=== PATIENT | male | born 1970 | race Caucasian/White ===

== ENCOUNTER 2018-08-16 11:38 | Emergency (ER) | payer SELFPAY ==
[2018-08-16 11:56] VITALS: BP 119/79; PULSE 82; RESP 20; TEMP 36.8; O2SAT 98
[2018-08-16 12:00] VITALS: RESP 18
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
[2018-08-16] MEDS: Acetaminophen 500 MG TAB 1000 MG PO (12:51)
[2018-08-16] MEDS: Ketorolac 30 MG/ML VIAL IM (12:51)
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
--- NOTE | 2018-08-23 10:55 | CMPROGNOTE_ITS ---
Care Management Progress Note 08/23-Jr needs to establish PCP. He does not need an ED f/u appt per Dr. Solitario. Referral faxed to [facility] (Carlos A director of application development). [facility] faxed back that they have mailed new patient packet if Jr would like to establish care.
== END 2018-08-16 13:46 | disposition home or self-care (01) ==
PROVIDERS: Emergency Provider Student in an Organized Health Care Education/Training Program
DX: S80.01XA Contusion of right knee, initial encounter (principal); R51 Headache; M25.561 Pain in right knee; V49.9XXA Car occupant (driver) (passenger) injured in unspecified traffic accident, initial encounter
CPT/HCPCS: 73562; 96372; 99284; J1885; L1810

== ENCOUNTER 2018-12-08 09:27 | Outpatient (CLI) | payer OTHER, SELFPAY ==
--- NOTE | 2018-12-08 09:23 | DI.RAD_ITS ---
SYMPTOMS/DIAGNOSIS: PAIN LEFT KNEE: No bony or joint abnormality is demonstrated.
== END 2018-12-08 09:47 ==
PROVIDERS: Visit Provider Orthopaedic Surgery
DX: M25.561 Pain in right knee (principal)
CPT/HCPCS: 73562

== ENCOUNTER 2019-01-18 12:52 | Outpatient (CLI) | payer OTHER, SELFPAY ==
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
== END 2019-01-18 13:12 ==
PROVIDERS: Visit Provider Orthopaedic Surgery
DX: M23.92 Unspecified internal derangement of left knee (principal); Z01.818 Encounter for other preprocedural examination
CPT/HCPCS: NC

== ENCOUNTER 2019-01-19 11:16 | Day surgery (SDC) | payer OTHER, SELFPAY ==
[2019-01-19 11:57] VITALS: BP 122/75; PULSE 53; RESP 16; TEMP 36.9; O2SAT 99
[2019-01-19] MEDS: Lactated Ringers 1,000 ML 80 ML IV (12:30)
[2019-01-19] MEDS: ceFAZolin 2 GM/50 ML BAG IVPB (12:52)
--- NOTE | 2019-01-19 13:51 | W.PM.DSUDISC ---
Discharge Plan Disposition Patient Disposition: HOME Condition: Good Discharge Details Reason For Visit: Arthroscopy L knee Attending Provider: Mauricio Johnson Primary Care Provider: ,Local Home Meds and New Rx's Prescriptions: New ibuprofen 800 mg tablet 800 mg PO TID Qty: 30 RF: 0 hydrocodone-acetaminophen 5-325 mg tablet 1 tab PO Q6H PRN (Reason: pain, moderate) Qty: 14 RF: 0 Discharge Instructions Additional Instructions: Crutches to walk. Put as much weight on L leg as your discomfort allows. Discontinue crutches when you can step fully on L leg with minimal pain. Elevate L leg when sitting. Apply cryocuff to L knee 4-6 times/day for 1 hour each time. May remove dressings, shower, and get incisions wet after 48 hours. Leave incisions uncovered when they are dry and sealed. Take ibuprofen 3 times/day for 10 days to decrease swelling and inflammation. Take hydrocodone for breakthru pain, if needed. Outpatient physical therapy on Fri or Mon for rehab L knee post-arthroscopic limited synovectomy and chondroplasty patello-femoral joint. Follow up with in 2 weeks. Referrals: Mauricio Johnson MD [ [facility] STAFF PHYSICIAN] - (f/u in 2 weeks.) Equipment/Supplies: Partial Weight Bearing Crutches Activity:: Activity as Tolerated Remove Dressings/Wound Care:: 48 hours Shower/Bathe:: 48 hours Diet:: As Tolerated Discharge Orders Discharge Orders: Discharge Order (Routine); Ordered 01/19/19 Ordered By: Mauricio Johnson
[2019-01-19 13:56] VITALS: BP 112/58; PULSE 56; RESP 12; TEMP 36.6; O2SAT 95
[2019-01-19 14:00] VITALS: BP 113/53; PULSE 55; RESP 12; TEMP 36.6; O2SAT 96
[2019-01-19 14:05] VITALS: BP 116/71; PULSE 55; RESP 13; TEMP 36.6; O2SAT 95
[2019-01-19 14:20] VITALS: BP 105/74; PULSE 57; RESP 16; TEMP 36.4; O2SAT 98
[2019-01-19 15:10] VITALS: BP 108/74; PULSE 52; RESP 16; TEMP 36; O2SAT 95
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
== END 2019-01-19 15:45 | disposition home or self-care (01) ==
PROVIDERS: Visit Provider Orthopaedic Surgery
PROC: (CPT 29870; principal; 2019-01-19 13:00)
DX: M23.92 Unspecified internal derangement of left knee (principal); M22.42 Chondromalacia patellae, left knee; M67.52 Plica syndrome, left knee; M17.12 Unilateral primary osteoarthritis, left knee; M94.262 Chondromalacia, left knee; V89.2XXS Person injured in unspecified motor-vehicle accident, traffic, sequela
CPT/HCPCS: 29877; J0131; J0690; J1100; J1885; J2250; J2405; J3010